=== PATIENT | male | born 1945 | race Caucasian/White ===

== ENCOUNTER 2016-07-19 16:53 | Inpatient (IN) | payer MEDICARE, OTHER ==
[~2016-07-19 16:53] MED LIST: B COMPLEX1 EAC1 PO; BICALUTAMIDE50 MG PO; CALCIUM 600+D1 EAC1 PO; LEXAPRO20 M2 PO; LISINOPRIL10 MG PO; NORCO 5/325 TAB1 TAB PO; SIMVASTATIN20 MG PO
[2016-07-19] MEDS ORDERED: PREDNISONE10 M1 PO (17:24)
[2016-07-19] MEDS ORDERED: MEGESTROL ACETA40 M1 PO (17:25)
[2016-07-19] MEDS ORDERED: VENLAFAXINE H37.5 M4 PO (17:37)
[2016-07-19] MEDS ORDERED: PRINIVIL20 M1 PO (17:38)
[2016-07-19] MEDS ORDERED: ZOCOR20 M1 PO (17:39)
[2016-07-19 18:08] LABS: BASO % 0.4 % (0-2); EOS % 0.4 % (0-7); HCT-HEMATOCRIT 36.7 % (36.0-53.5); HGB-HEMOGLOBIN 12.4 gm/dl (13.5-17.0); IMMATURE GRANULOCYTES ABSOLUTE 0.05 tho/cmm (0-0.03); IMMATURE GRANULOCYTES PERCENT 0.7 % (0-0.3); LYMPH % 15.7 % (20-45); LYMPH ABSOLUTE COUNT 1.2 tho/cmm (0.8-4.5); MCH (MEAN CORPUSCULAR HGB) 31.2 pg (28.0-32.0); MCHC MEAN CORPUSCULAR HGB CONC 33.8 % (32.0-36.0); MCV (MEAN CELL VOLUME) 92.4 fl (82.0-96.0); MEAN PLATELET VOLUME 12.7 cmc (9.4-12.4); MONO % 7.7 % (0-12); MONOCYTE ABSOLUTE COUNT 0.6 tho/cmm (0.0-1.2); NEUTROPHIL ABSOLUTE COUNT 5.5 tho/cmm (1.6-8.0); NEUTROPHIL-AUTOMATED 5.5 tho/cmm (1.6-8.0); NEUTROPHILS % 75.1 % (40-80); PLATELET COUNT 191 tho/cmm (150-450); RED BLOOD COUNT 3.97 mil/cmm (4.40-5.70); RED CELL DISTRIBUTION WIDTH 14.6 % (12.4-16.4); WHITE BLOOD COUNT 7.3 tho/cmm (4.0-10.0)
[2016-07-19 18:14] LABS: INR 1.2 INR (0.9-1.1); PROTHROMBIN TIME 13.6 SECONDS (9.0-13.6)
[2016-07-19 18:20] LABS: ALB/GLOB RATIO 1.2 (0.8-2.0); ALBUMIN 3.5 g/dl (3.5-5.0); ALKALINE PHOSPHATASE 73 U/L (33-138); ALT/SGPT 19 U/L (12-78); ANION GAP 18 mmol/L (0-20); AST/SGOT 12 U/L (10-40); BILIRUBIN,TOTAL 0.4 mg/dl (0.0-1.5); BLOOD UREA NITROGEN 62 mg/dl (6-24); C-REACTIVE PROTEIN 1.9 mg/dl (0-0.9); CALCIUM 8.3 mg/dl (8.5-10.5); CARBON DIOXIDE-VENOUS 21 mmol/L (22-32); CHLORIDE 105 mmol/l (96-110); CREATININE 1.74 mg/dl (0.60-1.30); GLUCOSE 196 mg/dL (70-110); SODIUM 141 mmol/L (135-145); eGFR VALUE FOR BLACK 45 mL/Min
[2016-07-19 18:25] LABS: POTASSIUM 2.9 mmol/L (3.7-5.1)
[2016-07-19 18:35] LABS: URINE BILIRUBIN NEGATIVE (NEG); URINE BLOOD NEGATIVE (NEG); URINE GLUCOSE (UA) NEGATIVE (NEG); URINE KETONE NEGATIVE (NEG); URINE LEUKOCYTE ESTERASE NEGATIVE (NEG); URINE NITRITE NEGATIVE (NEG); URINE PROTEIN MODERATE (NEG)
[2016-07-19 18:36] LABS: URINE APPEARANCE CLEAR; URINE COLOR YELLOW
[2016-07-19 18:44] LABS: URINE AMORPHOUS 1+; URINE EPITHELIAL CELLS RARE /[HPF] (0-10); URINE RBC 0 /[HPF] (0-5)
[2016-07-19 18:48] LABS: PROCALCITONIN 0.37 ng/ml (0.05-0.09)
[2016-07-19 22:48] LABS: MAGNESIUM 2.2 mg/dl (1.3-2.6)
[2016-07-20 05:09] LABS: BASO % 0.1 % (0-2); EOS % 0.1 % (0-7); HCT-HEMATOCRIT 33.7 % (36.0-53.5); HGB-HEMOGLOBIN 11.2 gm/dl (13.5-17.0); IMMATURE GRANULOCYTES ABSOLUTE 0.04 tho/cmm (0-0.03); IMMATURE GRANULOCYTES PERCENT 0.5 % (0-0.3); LYMPH % 5.7 % (20-45); LYMPH ABSOLUTE COUNT 0.4 tho/cmm (0.8-4.5); MCH (MEAN CORPUSCULAR HGB) 30.9 pg (28.0-32.0); MCHC MEAN CORPUSCULAR HGB CONC 33.2 % (32.0-36.0); MCV (MEAN CELL VOLUME) 92.8 fl (82.0-96.0); MONO % 0.8 % (0-12); MONOCYTE ABSOLUTE COUNT 0.1 tho/cmm (0.0-1.2); NEUTROPHIL ABSOLUTE COUNT 7.1 tho/cmm (1.6-8.0); NEUTROPHIL-AUTOMATED 7.1 tho/cmm (1.6-8.0); NEUTROPHILS % 92.8 % (40-80); PLATELET COUNT 170 tho/cmm (150-450); RED BLOOD COUNT 3.63 mil/cmm (4.40-5.70); RED CELL DISTRIBUTION WIDTH 14.6 % (12.4-16.4); WHITE BLOOD COUNT 7.6 tho/cmm (4.0-10.0)
[2016-07-20 05:21] LABS: ALB/GLOB RATIO 1.2 (0.8-2.0); ALBUMIN 3.2 g/dl (3.5-5.0); ALKALINE PHOSPHATASE 68 U/L (33-138); ALT/SGPT 18 U/L (12-78); ANION GAP 15 mmol/L (0-20); AST/SGOT 13 U/L (10-40); BILIRUBIN,TOTAL 0.5 mg/dl (0.0-1.5); BLOOD UREA NITROGEN 45 mg/dl (6-24); CALCIUM 7.4 mg/dl (8.5-10.5); CARBON DIOXIDE-VENOUS 19 mmol/L (22-32); CHLORIDE 111 mmol/l (96-110); GLUCOSE 145 mg/dL (70-110); POTASSIUM 3.6 mmol/L (3.7-5.1); SODIUM 141 mmol/L (135-145); eGFR VALUE FOR BLACK 72 mL/Min
[2016-07-20 05:25] LABS: INR 1.2 INR (0.9-1.1); PROTHROMBIN TIME 13.8 SECONDS (9.0-13.6)
[2016-07-20 05:27] LABS: CREATININE 1.19 mg/dl (0.60-1.30)
[2016-07-22 04:53] LABS: HGB-HEMOGLOBIN 10.6 gm/dl (13.5-17.0); PLATELET COUNT 226 tho/cmm (150-450)
[2016-07-22] MEDS ORDERED: POLYETHYLENE G255 G1 PO (11:07)
[2016-09-28] MEDS ORDERED: VITAMIN D-32000 UNI3 PO (15:21)
[2016-09-28] MEDS ORDERED: VITAMIN C1000 M1 PO (15:22)
[2016-09-28] MEDS ORDERED: CALCIUM 600 +1 EA21 PO (15:22)
[2016-09-28] MEDS ORDERED: XTANDI40 M1 PO (15:23)
== END 2016-07-22 13:13 | DRG 388 ==
LOC: EDMED 16:53 → EMR2 21:35 → PCUA 22:27
PROVIDERS: Emergency Medicine; ADMIT Hospitalist
PROC: 0D7H8ZZ Dilation of Cecum, Via Natural or Artificial Opening Endoscopic (ICD-10-PCS; principal; 2016-07-20)
PROC: 0D7L8ZZ Dilation of Transverse Colon, Via Natural or Artificial Opening Endoscopic (ICD-10-PCS; 2016-07-20)
DX: K56.69 Other intestinal obstruction (principal); A41.9 Sepsis, unspecified organism; R65.20 Severe sepsis without septic shock; N17.9 Acute kidney failure, unspecified; C79.51 Secondary malignant neoplasm of bone; E27.40 Unspecified adrenocortical insufficiency; C61 Malignant neoplasm of prostate; F32.9 Major depressive disorder, single episode, unspecified; K63.5 Polyp of colon; E78.00 Pure hypercholesterolemia, unspecified; E78.5 Hyperlipidemia, unspecified; Z96.652 Presence of left artificial knee joint
CPT/HCPCS: C1769; J1335; J1650; J1720; J2405; J2543; J2930; J3475; J3480; J7030; J7050

== ENCOUNTER 2016-09-30 06:09 | Inpatient (IN) | payer MEDICARE, OTHER ==
[~2016-09-30 06:09] MED LIST changes: +CALCIUM 600 +1 EA21 PO; +MEGESTROL ACETA40 M1 PO; +POLYETHYLENE G255 G1 PO; +PREDNISONE10 M1 PO; +PRINIVIL20 M1 PO; +VENLAFAXINE H37.5 M4 PO; +VITAMIN C1000 M1 PO; +VITAMIN D-32000 UNI3 PO; +XTANDI40 M1 PO; +ZOCOR20 M1 PO
[2016-10-01] MEDS ORDERED: NORCO 5-325 TA1 EACH PO (16:15)
== END 2016-10-01 17:27 | DRG 330 ==
LOC: SHSC 06:09 → ORW 08:08 → PACU 10:52 → SHSB 12:03 → 5WE 17:10
PROVIDERS: ADMIT Colon & Rectal Surgery
PROC: 0D1H0Z4 Bypass Cecum to Cutaneous, Open Approach (ICD-10-PCS; principal; 2016-09-30)
PROC: 0DJD4ZZ Inspection of Lower Intestinal Tract, Percutaneous Endoscopic Approach (ICD-10-PCS; 2016-09-30)
PROC: 0D7E8ZZ Dilation of Large Intestine, Via Natural or Artificial Opening Endoscopic (ICD-10-PCS; 2016-09-30)
DX: K59.8 Other specified functional intestinal disorders (principal); C79.51 Secondary malignant neoplasm of bone; I27.2 Other secondary pulmonary hypertension; E11.9 Type 2 diabetes mellitus without complications; I10 Essential (primary) hypertension; D64.9 Anemia, unspecified; E53.8 Deficiency of other specified B group vitamins; E66.9 Obesity, unspecified; K21.9 Gastro-esophageal reflux disease without esophagitis; E78.5 Hyperlipidemia, unspecified; Z85.46 Personal history of malignant neoplasm of prostate; M19.90 Unspecified osteoarthritis, unspecified site; F32.9 Major depressive disorder, single episode, unspecified; F41.9 Anxiety disorder, unspecified; E55.9 Vitamin D deficiency, unspecified
CPT/HCPCS: J1170; J1335; J1644; J1720; J1885; J2270; J3010; J7030; J7512

== ENCOUNTER 2017-01-27 14:30 | Inpatient (IN) | payer MEDICARE, OTHER ==
[~2017-01-27] VITALS: Ht 180.3 cm; Wt 79.5 kg
[~2017-01-27 14:30] MED LIST changes: +NORCO 5-325 TA1 EACH PO
[2017-01-27 15:31] LABS: BASO % 0.1 % (0-2); EOS % 0.4 % (0-7); EOSINOPHIL ABSOLUTE COUNT 0.1 tho/cmm (0.0-0.7); HGB-HEMOGLOBIN 14.3 gm/dl (13.5-17.0); IMMATURE GRANULOCYTES ABSOLUTE 0.05 tho/cmm (0-0.03); IMMATURE GRANULOCYTES PERCENT 0.4 % (0-0.3); LYMPH % 14.4 % (20-45); LYMPH ABSOLUTE COUNT 1.9 tho/cmm (0.8-4.5); MCH (MEAN CORPUSCULAR HGB) 30.4 pg (28.0-32.0); MCV (MEAN CELL VOLUME) 89.2 fl (82.0-96.0); MEAN PLATELET VOLUME 9.3 cmc (9.4-12.4); MONOCYTE ABSOLUTE COUNT 0.8 tho/cmm (0.0-1.2); NEUTROPHIL ABSOLUTE COUNT 10.3 tho/cmm (1.6-8.0); NEUTROPHIL-AUTOMATED 10.3 tho/cmm (1.6-8.0); NEUTROPHILS % 78.7 % (40-80); PLATELET COUNT 233 tho/cmm (150-450); RED BLOOD COUNT 4.71 mil/cmm (4.40-5.70); RED CELL DISTRIBUTION WIDTH 13.7 % (12.4-16.4)
[2017-01-27 15:40] LABS: ANION GAP 12 mmol/L (0-20); BLOOD UREA NITROGEN 24 mg/dl (6-24); CALCIUM 8.7 mg/dl (8.5-10.5); CARBON DIOXIDE-VENOUS 27 mmol/L (22-32); CHLORIDE 105 mmol/l (96-110); CREATININE 0.88 mg/dl (0.60-1.30); GLUCOSE 97 mg/dL (70-110); POTASSIUM 4.2 mmol/L (3.7-5.1); SODIUM 140 mmol/L (135-145); eGFR VALUE FOR BLACK >90 mL/Min
[2017-01-28 05:32] LABS: BASO % 0.1 % (0-2); EOSINOPHIL ABSOLUTE COUNT 0.1 tho/cmm (0.0-0.7); HCT-HEMATOCRIT 36.6 % (36.0-53.5); HGB-HEMOGLOBIN 12.2 gm/dl (13.5-17.0); IMMATURE GRANULOCYTES ABSOLUTE 0.03 tho/cmm (0-0.03); IMMATURE GRANULOCYTES PERCENT 0.4 % (0-0.3); LYMPH ABSOLUTE COUNT 1.8 tho/cmm (0.8-4.5); MCH (MEAN CORPUSCULAR HGB) 29.7 pg (28.0-32.0); MCHC MEAN CORPUSCULAR HGB CONC 33.3 % (32.0-36.0); MCV (MEAN CELL VOLUME) 89.1 fl (82.0-96.0); MEAN PLATELET VOLUME 9.2 cmc (9.4-12.4); MONO % 6.3 % (0-12); MONOCYTE ABSOLUTE COUNT 0.5 tho/cmm (0.0-1.2); NEUTROPHIL ABSOLUTE COUNT 5.7 tho/cmm (1.6-8.0); NEUTROPHIL-AUTOMATED 5.7 tho/cmm (1.6-8.0); NEUTROPHILS % 70.2 % (40-80); PLATELET COUNT 193 tho/cmm (150-450); RED BLOOD COUNT 4.11 mil/cmm (4.40-5.70); WHITE BLOOD COUNT 8.1 tho/cmm (4.0-10.0)
[2017-01-28 05:49] LABS: ANION GAP 10 mmol/L (0-20); BLOOD UREA NITROGEN 18 mg/dl (6-24); CALCIUM 7.4 mg/dl (8.5-10.5); CARBON DIOXIDE-VENOUS 26 mmol/L (22-32); CHLORIDE 108 mmol/l (96-110); CREATININE 0.68 mg/dl (0.60-1.30); GLUCOSE 80 mg/dL (70-110); POTASSIUM 4.3 mmol/L (3.7-5.1); SODIUM 140 mmol/L (135-145); eGFR VALUE FOR BLACK >90 mL/Min
[2017-01-28] MEDS ORDERED: VENLAFAXINE HCL75 M4 PO (10:34)
[2017-01-28] MEDS ORDERED: DURAGESIC1 EAC2 TOP (10:34)
[2017-01-28] MEDS ORDERED: LEXAPRO20 M2 PO (10:36)
[2017-01-28] MEDS ORDERED: DEXAMETHASONE4 M1 PO (10:36)
[2017-01-28] MEDS ORDERED: PREDNISONE5 M1 PO (10:37)
[2017-01-28] MEDS ORDERED: CORTEF5 M1 PO ×2 (10:45→10:46)
[2017-01-28] MEDS ORDERED: POTASSIUM CHLO20 ME3 PO (10:47)
[2017-01-28] MEDS ORDERED: NORCO 10-325 T1 EACH PO (10:49)
[2017-01-28] MEDS ORDERED: EFFEXOR XR150 M1 PO (10:52)
[2017-01-28] MEDS ORDERED: MEGESTROL ACETA40 M1 PO (10:54)
[2017-01-28] MEDS ORDERED: XTANDI40 M1 PO (10:57)
[2017-01-28] MEDS ORDERED: ZYTIGA250 M1 PO (10:57)
[2017-01-29 05:31] LABS: HGB-HEMOGLOBIN 11.4 gm/dl (13.5-17.0); PLATELET COUNT 179 tho/cmm (150-450)
[2017-01-29] MEDS ORDERED: MEGESTROL ACETA40 M1 PO (14:22)
[2017-01-29] MEDS ORDERED: ONDANSETRON HCL8 M1 PO (14:23)
[2017-01-29] MEDS ORDERED: CLARITIN10 M6 PO (14:41)
[2017-01-29] MEDS ORDERED: VITAMIN B-12250 MC2 PO (14:41)
[2017-01-29] MEDS ORDERED: TYLENOL325 M2 PO (14:42)
[2017-01-29] MEDS ORDERED: EFFEXOR XR75 M1 PO (14:45)
[2017-01-29] MEDS ORDERED: LOPERAMIDE2 M2 PO (14:51)
[2017-01-30 05:56] LABS: EOS % 1.8 % (0-7); EOSINOPHIL ABSOLUTE COUNT 0.1 tho/cmm (0.0-0.7); HCT-HEMATOCRIT 35.9 % (36.0-53.5); HGB-HEMOGLOBIN 11.9 gm/dl (13.5-17.0); IMMATURE GRANULOCYTES ABSOLUTE 0.01 tho/cmm (0-0.03); IMMATURE GRANULOCYTES PERCENT 0.1 % (0-0.3); LYMPH % 12.2 % (20-45); LYMPH ABSOLUTE COUNT 0.8 tho/cmm (0.8-4.5); MCH (MEAN CORPUSCULAR HGB) 29.5 pg (28.0-32.0); MCHC MEAN CORPUSCULAR HGB CONC 33.1 % (32.0-36.0); MCV (MEAN CELL VOLUME) 89.1 fl (82.0-96.0); MEAN PLATELET VOLUME 9.2 cmc (9.4-12.4); MONOCYTE ABSOLUTE COUNT 0.4 tho/cmm (0.0-1.2); NEUTROPHIL ABSOLUTE COUNT 5.4 tho/cmm (1.6-8.0); NEUTROPHIL-AUTOMATED 5.4 tho/cmm (1.6-8.0); NEUTROPHILS % 79.9 % (40-80); PLATELET COUNT 173 tho/cmm (150-450); RED BLOOD COUNT 4.03 mil/cmm (4.40-5.70); RED CELL DISTRIBUTION WIDTH 13.8 % (12.4-16.4); WHITE BLOOD COUNT 6.8 tho/cmm (4.0-10.0)
[2017-01-31 06:21] LABS: PLATELET COUNT 179 tho/cmm (150-450)
[2017-01-31] MEDS ORDERED: TYLENOL325 M2 PO (19:39)
[2017-02-01] MEDS ORDERED: SENOKOT8.6 M1 PO (12:53)
[2017-02-01] MEDS ORDERED: ATIVAN0.5 M1 PO (13:03)
[2017-02-01] MEDS ORDERED: ROXANOL PO (13:03)
[2017-02-01] MEDS ORDERED: DULCOLAX10 MG PR (13:07)
== END 2017-02-01 14:45 | disposition hospice, home (50) | DRG 389 ==
LOC: EDMED → EDBD 14:42 → EMR2 18:04 → 5WF 18:04
PROVIDERS: Emergency Medicine; Family Medicine; Specialist; ADMIT Hospitalist
PROC: 0D9 Gastrointestinal System, Drainage (ICD-10-PCS; principal; 2017-02-01)
DX: K56.60 Unspecified intestinal obstruction (principal); C18.9 Malignant neoplasm of colon, unspecified; C78.7 Secondary malignant neoplasm of liver and intrahepatic bile duct; C79.31 Secondary malignant neoplasm of brain; C79.51 Secondary malignant neoplasm of bone; D72.829 Elevated white blood cell count, unspecified; I10 Essential (primary) hypertension
CPT/HCPCS: A9606; C1769; G8978-GP-CI; G8979-GP-CI; G8980-GP-CI; J1650; J2212; J2405; J7030; J7512; Q9967